=== PATIENT | female | born 1940 | race Caucasian/White ===

== ENCOUNTER 2016-03-06 05:03 | Inpatient (IN) | payer OTHER ==
[~2016-03-06] VITALS: Ht 172.7 cm; Wt 100.0 kg
[~2016-03-06 05:03] MED LIST: ALLOPURINOL100 MG PO; ALPRAZOLAM0.25 MG PO; ANTI-DIARRHEA2 MG PO; ASPIRIN LOW DOS81 M1 PO; ASPIRIN1 GM PO; ASPIRIN325 MG PO; ATIVAN1 MG PO; ATORVASTATIN CA40 MG PO; Advair HFA 115/21 IH; Aspirin E.C. PO; Augmentin PO; BENTYL20 MG PO; BUMEX1 MG PO; CARVEDILOL3.125 MG PO; CEFTIN500 MG PO; CEPHALEXIN500 MG PO; CHONDROITIN SU250 MG PO; COLACE100 MG PO; Coreg PO; Coumadin,Jantoven PO; DAILY VALUE1 EACH PO; ECOTRIN325 MG PO; EMS NITROSTAT0.4 MG SL; ENDOCET 5-3251 EACH PO; FLAGYL250 MG PO; GLUCOSAMINE 1,1 EAC1 PO; GLUCOSAMINE 1,1 EACH PO; Glucosamine Sulfate PO; HUMULIN N100 UNIT/1 SQ; IMODIUM MS REL1 EACH PO; INVanz IV; K-DUR20 MEQ PO; KAYEXALATE15 GM/60 M PO; KETOCONAZOLE60 GM TP; LASIX PO; LASIX10 MG PO; LASIX2 MG/1 ML PO; LASIX20 MG PO; LASIX40 MG PO; LATANOPROST2.5 ML BOTH EYES; LEVOTHYROXINE200 MC1 PO; LISINOPRIL10 MG PO; LITE COAT ASPI325 M1 PO; LO-DOSE ASPIRIN81 M2 PO; Levothroid,Synthroid PO; MACROBID100 MG PO; NEURONTIN100 MG PO; NITROSTAT0.4 MG SL; NIZORAL 2% CREA15 GM TP; NOVOLIN N100 UNIT/1 SC; NOVOLIN N100 UNIT/1 SQ; NOVOLIN N100 UNITS/ SC; Nizoral 2% Cream TP; PANTOPRAZOLE SO40 MG PO; POTASSIUM99 MG PO; PRAVASTATIN SOD10 MG PO; PREDNISONE20 MG PO; PRINIVIL10 MG PO; PROTONIX40 MG PO; PROVENTIL,2.5 MG/3 M IH; Pradaxa PO; Proventil,Ventolin H IH; SPIRIVA1 INHALATI IH; STOOL SOFTENER100 MG PO; SYNTHROID125 MCG PO; SYNTHROID25 MCG PO; TRAMADOL HCL50 MG PO; TYLENOL ARTHRI650 MG PO; TYLENOL REGULA325 MG PO; Theragran PO; VELTASSA8.4 GM PO; Vancomycin IV; ZESTRIL,PRINIVI10 M1 PO; ZESTRIL,PRINIVI10 MG PO; ZOCOR40 MG PO; ZOFRAN ODT4 MG PO; Zestril,Prinivil PO; Zocor PO; [UNRECOGNIZED DRUG - SUPPLY] MC; predniSONE PO
[2016-03-06 05:52] LABS: EOSINOPHIL COUNT 0.1 K/uL (0-0.3); HEMATOCRIT 32.8 % (36.0-46.0); IMMATURE GRANULOCYTE (%) 0.3 % (0.0-0.7); IMMATURE GRANULOCYTE COUNT 0.2 K/uL; LYMPHOCYTE COUNT 0.6 K/uL (1.0-2.8); MCHC 30.2 G/DL (30.0-36.0); MEAN PLAT.VOLUME 11.3 uM^3 (9.5-12.4); MONOCYTE COUNT 0.6 K/uL (0-0.8); NEUTROPHIL (%) 82.5 % (45-76); NEUTROPHIL COUNT 5.8 K/uL (1.8-6.4); PLATELET COUNT 116 K/uL (156-360); RBC DIS.WIDTH-CV 14.9 % (11.8-14.6); RBC DIS.WIDTH-SD 48.1 % (39-53); RED BLOOD COUNT 3.53 M/uL (3.80-5.20)
[2016-03-06 05:54] LABS: MCV 92.9 FL (83-99)
[2016-03-06 05:58] LABS: CHLORIDE 92 mEq/L (99-109); POTASSIUM 3.3 mEq/L (3.7-5.4); SODIUM 134 mEq/L (136-147)
[2016-03-06 05:59] LABS: D-DIMER ELISA 1.87 mg/L FEU (< 0.57)
[2016-03-06 06:00] LABS: GLUCOSE 150 mg/dL (70-99)
[2016-03-06 06:01] LABS: ANION GAP 13 MEQ/L (2-14)
[2016-03-06 06:02] LABS: TOTAL BILIRUBIN 1.8 mg/dL (0.0-1.0)
[2016-03-06 06:03] LABS: ALKALINE PHOSPHATASE 87 IU/L (3-129)
[2016-03-06 06:04] LABS: GFR ESTIMATE (CALCULATED) 33 mL/min/
[2016-03-06 06:05] LABS: UREA NITROGEN (BUN) 65 mg/dL (9-23)
[2016-03-06 06:08] LABS: TROP-I INTERPRETATION NEGATIVE; TROPONIN-I 0.02 ng/mL (0.0-0.30)
[2016-03-06] MEDS ORDERED: LOPERAMIDE2 M1 PO (08:37)
[2016-03-06] MEDS ORDERED: METOLAZONE5 MG PO (08:40)
[2016-03-06] MEDS ORDERED: FUROSEMIDE40 MG PO (08:41)
[2016-03-06] MEDS ORDERED: SPIRONOLACTONE25 MG PO (08:41)
[2016-03-06] MEDS ORDERED: MYCOSTATIN1 APPLICAT TP (08:42)
[2016-03-06] MEDS ORDERED: CALCITRIOL0.25 MCG PO (08:43)
[2016-03-06] MEDS ORDERED: IRON325 MG PO (08:44)
[2016-03-06] MEDS ORDERED: SUPER B COMP1 TABLET PO (08:46)
[2016-03-06] MEDS ORDERED: FERROUS SULFAT325 MG PO (08:46)
[2016-03-06 09:30] LABS: INFLUENZA A VIRAL ANTIGEN NEGATIVE; INFLUENZA B VIRAL ANTIGEN NEGATIVE
[2016-03-06 11:36] LABS: POINT-OF-CARE METER ID UU13113702
[2016-03-06 12:43] LABS: TROP-I INTERPRETATION NEGATIVE; TROPONIN-I 0.03 ng/mL (0.0-0.30)
[2016-03-06 14:30] VITALS: BP 133/62
[2016-03-06 17:22] LABS: POINT-OF-CARE METER ID UU14162513
[2016-03-06 18:19] LABS: TROP-I INTERPRETATION NEGATIVE; TROPONIN-I 0.03 ng/mL (0.0-0.30)
[2016-03-06 20:39] VITALS: BP 131/59
[2016-03-06 22:35] LABS: POINT-OF-CARE METER ID UU13113831
[2016-03-07] VITALS: BP 113/54
[2016-03-07 04:10] VITALS: BP 99/48
[2016-03-07 06:38] LABS: HEMATOCRIT 31.7 % (36.0-46.0); MCH 28.5 PG (29.0-34.0); MCHC 30.3 G/DL (30.0-36.0); MCV 94.1 FL (83-99); MEAN PLAT.VOLUME 12.3 uM^3 (9.5-12.4); PLATELET COUNT 104 K/uL (156-360); RBC DIS.WIDTH-CV 15.3 % (11.8-14.6); RBC DIS.WIDTH-SD 53.1 % (39-53); RED BLOOD COUNT 3.37 M/uL (3.80-5.20); WHITE BLOOD COUNT 6.9 K/uL (4.1-10.2)
[2016-03-07 06:47] LABS: INTER. NORMALIZED RATIO 1.1; PROTHROMBIN TIME 11.4 (9.2-11.2)
[2016-03-07 07:11] LABS: ANION GAP 14 MEQ/L (2-14); CHLORIDE 93 MEQ/L (99-109); GLUCOSE 141 mg/dL (70-99); SAMPLE HEMOLYSIS CHECK 1; SAMPLE ICTERIC CHECK 0; SAMPLE LIPEMIA CHECK 0; SODIUM 134 MEQ/L (136-147); TOTAL BILIRUBIN 1.6 MG/DL (0.0-1.0); UREA NITROGEN (BUN) 76 mg/dL (9-23)
[2016-03-07 07:17] LABS: GFR ESTIMATE (CALCULATED) 24 mL/min/; POTASSIUM 4.2 MEQ/L (3.7-5.4)
[2016-03-07 07:25] LABS: POINT-OF-CARE METER ID UU13113700
[2016-03-07 08:31] VITALS: BP 103/58
[2016-03-07 12:49] VITALS: BP 120/59
[2016-03-07 13:00] LABS: POINT-OF-CARE METER ID UU13113700
[2016-03-07 16:00] VITALS: BP 121/74
[2016-03-07 17:45] LABS: POINT-OF-CARE METER ID UU13113700
[2016-03-07 20:18] VITALS: BP 142/67
[2016-03-07 23:00] LABS: POINT-OF-CARE METER ID UU13113700
[2016-03-08 04:20] VITALS: BP 114/58
[2016-03-08 07:12] LABS: EOSINOPHIL (%) 0.4 % (0-5); HEMATOCRIT 30.6 % (36.0-46.0); IMMATURE GRANULOCYTE (%) 0.3 % (0.0-0.7); LYMPHOCYTE COUNT 0.5 K/uL (1.0-2.8); MCH 27.8 PG (29.0-34.0); MCHC 29.7 G/DL (30.0-36.0); MCV 93.6 FL (83-99); MEAN PLAT.VOLUME 11.7 uM^3 (9.5-12.4); MONOCYTE (%) 10.1 % (3-12); MONOCYTE COUNT 0.7 K/uL (0-0.8); NEUTROPHIL (%) 82.2 % (45-76); NEUTROPHIL COUNT 5.8 K/uL (1.8-6.4); PLATELET COUNT 102 K/uL (156-360); RBC DIS.WIDTH-CV 15.3 % (11.8-14.6); RBC DIS.WIDTH-SD 52.4 % (39-53); RED BLOOD COUNT 3.27 M/uL (3.80-5.20)
[2016-03-08 07:24] LABS: ANION GAP 11 MEQ/L (2-14); CHLORIDE 95 MEQ/L (99-109); POTASSIUM 4.1 MEQ/L (3.7-5.4); SAMPLE HEMOLYSIS CHECK 0; SAMPLE ICTERIC CHECK 0; SAMPLE LIPEMIA CHECK 0; SODIUM 136 MEQ/L (136-147)
[2016-03-08 07:30] LABS: GFR ESTIMATE (CALCULATED) 26 mL/min/; GLUCOSE 149 mg/dL (70-99); UREA NITROGEN (BUN) 80 mg/dL (9-23)
[2016-03-08 08:00] VITALS: BP 103/56
[2016-03-08] MEDS ORDERED: GABAPENTIN100 MG PO (11:30)
[2016-03-08 12:30] VITALS: BP 117/54
== END 2016-03-08 15:07 | DRG 292 ==
LOC: EME → EDBD 05:03 → EME 05:03 → 5WEST 07:16 → EDOF 07:16 → 5WEST 14:23
PROVIDERS: Emergency Medicine; Hospitalist; Internal Medicine; Internal Medicine Nephrology; Nurse Practitioner Adult Health
DX: I50.9 Heart failure, unspecified (principal); L03.116 Cellulitis of left lower limb; J90 Pleural effusion, not elsewhere classified; E87.1 Hypo-osmolality and hyponatremia; I25.10 Atherosclerotic heart disease of native coronary artery without angina pectoris; I48.2 Chronic atrial fibrillation; E03.9 Hypothyroidism, unspecified; F32.9 Major depressive disorder, single episode, unspecified; I12.9 Hypertensive chronic kidney disease with stage 1 through stage 4 chronic kidney disease, or unspecified chronic kidney disease; K21.9 Gastro-esophageal reflux disease without esophagitis; Z88.1 Allergy status to other antibiotic agents; I51.7 Cardiomegaly; I27.2 Other secondary pulmonary hypertension; E87.6 Hypokalemia; D64.9 Anemia, unspecified; R06.00 Dyspnea, unspecified; R07.9 Chest pain, unspecified; Z79.4 Long term (current) use of insulin; E11.22 Type 2 diabetes mellitus with diabetic chronic kidney disease; J44.9 Chronic obstructive pulmonary disease, unspecified; Z99.81 Dependence on supplemental oxygen; N18.3 Chronic kidney disease, stage 3 (moderate); E66.9 Obesity, unspecified; Z68.33 Body mass index [BMI] 33.0-33.9, adult
CPT/HCPCS: 71010; 80048; 80053; 82247; 82948; 83605; 83735; 83880; 84484; 84550; 85025; 85027; 85379; 85610; 87040; 87502; 93005; 94799; 99202; 99281; 99285; G0378; G8978 GP CM; G8979 GP CK; G8980 GP CM; G8987 GO CM; G8988 GO CK; G8989 GO CM; J0690; J0696; J1644; J1815; J2270; J2405; J3010; J7030; J7050